=== PATIENT | male | born 1930 | race Caucasian/White ===

== ENCOUNTER 2020-08-08 20:08 | Observation (INO) ==
--- NOTE | 2020-08-08 20:56 | ERNOTE ---
Medical Problem HPI - Narrative Date of Service: 08/08/20 - General Chief Complaint: General Assessment Time Seen by Provider: 08/08/20 20:18 Source: patient, family Exam Limitations: no limitations - Immun/Allergies/Home Medications Immunizations: IMMUNIZATION HX Immunizations Up to Date Yes History of Influenza Vaccine Yes Hx Pneumococcal Vaccination No Allergies/Adverse Reactions: Allergies Penicillins Allergy (Verified 08/08/20 20:33) Home Medications: HOME MEDICATIONS Aspirin 81 mg PO DAILY 08/08/20 [Last Taken Unknown] Metoprolol Succinate [Toprol Xl] 25 mg PO DAILY 08/08/20 [Last Taken Unknown] Simvastatin [Zocor] 5 mg PO DAILY 08/08/20 [Last Taken Unknown] - History of Present History Narrative: Patient is brought in by EMS for fever, body aches and weakness going on now for 1 week. Symptoms seem to be getting worse. They have been in contact with PCP, Covid test returned back negative yesterday. No other symptoms that the patient can pinpoint. He does not have cough, no shortness of breath, no chest pain, he had one loose stool, no nausea or vomiting now, no abdominal pain. He does not have any urinary symptoms. No ill contacts with similar symptoms. He feels he is growing generally weaker due to the fever and body aches. They have not measured his temperature, seems to go down with ibuprofen, last dose of ibuprofen was 800 mg at 6 PM. Has history of gallbladder removal, had open heart surgery a few years ago. His only current medications are metoprolol, simvastatin and baby aspirin. Date (Duration): 08/01/20 Timing: intermittent Review of Systems - Review of Systems Constitutional: Present: See HPI, fever, chills, weakness, fatigue EYE: Present: no symptoms reported ENT: Present: ear pain - reports some decreased hearing and pressure in the ears for past few days, nose congestion - mild Respiratory: Present: no symptoms reported. Absent: shortness of breath, cough Cardiology: Present: no symptoms reported. Absent: chest pain, edema Gastrointestinal/Abdominal: Present: diarrhea - once Genitourinary: Present: no symptoms reported Musculoskeletal: Present: no symptoms reported Skin: Present: no symptoms reported Neurological: Present: no symptoms reported Medical History (Last Reviewed 08/08/20 @ 20:54 by Jennifer Louis MD) Past heart attack 2006 Surgical History: Surgical History (Last Reviewed 08/08/20 @ 20:54 by Jennifer Louis MD) History of cholecystectomy History of heart bypass surgery 2006 x 1 History of hernia repair Family History: Family History (Last Reviewed 08/08/20 @ 20:54 by Jennifer Louis MD) Other Family history non-contributory Social History: (Last Reviewed 08/08/20 @ 20:54 by Jennifer Louis MD) Social History: adopted: No foster care: No group home: No Marital status: lives independently: Yes household members: spouse Tobacco: Smoking Status: Never smoker Alcohol: alcohol intake: never Substance Use: substance use type: does not use Physical Exam - Physical Exam General Appearance: Present: wd/wn, alert, no apparent distress Head Exam: Present: normal inspection, no evidence of injury Eye Exam: Normal inspection: bilateral, PERRL: bilateral Ears, Nose, Throat: Present: normal except -, abnormal TM (R) - tm is bulging with purulent exudate behind. Neck: Present: normal inspection, nontender Respiratory: Present: no respiratory distress, normal breath sounds Cardiovascular/Chest: Present: regular rate, rhythm Gastrointestinal/Abdominal: Present: normal bowel sounds, nontender, nondistended - healed surgical scars Back Exam: Present: normal inspection, no CVA tenderness Extremity Exam: Present: normal inspection, no edema Neurological Exam: Present: alert, oriented, normal mood/affect Skin Exam: Present: normal color, warm/dry Progress - Results and Orders Patient's Lab Results:: I have reviewed the patient's lab results. Results and Orders: Laboratory Tests 08/08/20 08/08/20 08/08/20 20:30 20:30 20:59 WBC 13.0 H Hgb 14.0 Hct 40.8 L Plt Count 205 Neutrophils # 11.9 H Sodium 130 L Chloride 97 Carbon Dioxide 21.1 L Anion Gap 15.5 H BUN 37 H Creatinine 1.42 H BUN/Creatinine Ratio 26.1 H AST 78 H ALT 47 C-Reactive Prot, Quant 39.5 H Influenza Type A Ag Negative Influenza Type B Ag Negative Laboratory Tests 08/08/20 21:54 SARS-CoV-2 (PCR) Not detected - Vital Signs Patient's Vital Signs:: I have reviewed the patient's vital signs. Vital Signs: Vital Signs 10/30/20 20:13 Temperature 37.1 C Pulse Rate 69 Respiratory Rate 16 Blood Pressure 112/62 O2 Sat by Pulse Oximetry 95 - EKG EKG #1 EKG: NSR EKG read: Interp. by me EKG Comments: EKG shows normal sinus rhythm, no acute changes, ventricular rate is 67. - X-Ray X-Ray #1 X-Ray: chest Interpretation: Interp. by me - DM pneumonia, patchy infiltrate - Progress/Reassessment Chief Complaint: Fever Progress:: Unchanged Progress Note-Subjective: 08/08/20 22:10 Discussed findings of chest x-ray, elevated CRP and white blood cell count with patient and family. Discussed options. I also contacted hospitalist and recommended that the patient be admitted for observation due to his age and the fact that he had been evaluated already earlier in the week and his symptoms are deteriorating. He is suffering from weakness and his family is concerned that he may fall. Recommended that he have first doses of IV antibiotics and IV fluids until he is stronger and his symptoms are improving from his pneumonia. Blood cultures are obtained, first dose of antibiotics administered. He received 1 L of IV fluids here in the ED. Covid test is pending. 08/08/20 23:15 Patient's Covid test is negative, he is admitted to the floor in stable condition. Departure Clinical Impression: CAP (community acquired pneumonia) - Departure Disposition: Still a patient Condition: Fair
[2020-08-08 21:03] LABS: Albumin * 2.6 gm/dl (3.4-5.0); Anion Gap 15.5 mmol/L (6.8-13.8); BUN/Creatinine Ratio 26.1 (9.0-21.6); Bilirubin, Total 0.9 mg/dL (0.0-1.1); Ca. Corrected For Albumin 9.5 mg/dL (8.4-10.2); Calcium * 8.7 mg/dL (7.9-10.9); Carbon Dioxide 21.1 mmol/L (24-32.6); Potassium 3.6 mmol/L (3.4-4.6); Total Protein 6.5 gm/dL (6.2-8.2)
[2020-08-08 21:04] LABS: Hematocrit 40.8 % (42.0-52.0); Mean Cell Volume 93.2 fl (78-100); Mean Corpuscular Hgb Conc 34.3 g/dl (32-36); Mean Platelet Volume 9.9 fl (8-11.3); Neutrophil # 11.9 K/mm3 (1.3-6.0); Neutrophil % 91.8 % (42-75.0); Platelet Count 205 K/mm3 (150-450); Red Blood Count 4.38 M/mm3 (4.7-6.0); Red Cell Distribution Width 12.9 % (11.5-14.0)
[2020-08-08] MEDS ORDERED: NORMAL SALINE 1,000 ML IV ONE (21:04)
[2020-08-08 21:18] LABS: CRP 39.5 mg/dL (0.0-0.9)
[2020-08-08] MEDS ORDERED: cefTRIAXone SODIUM 1,000 MG/100 ML BAG IV ONE (21:57)
[2020-08-08] MEDS ORDERED: AZITHROMYCIN 250 MG TABLET PO ONE (21:58)
[2020-08-09 02:53] LABS: Urine Appearance Clear (CLEAR); Urine Bacteria None Seen; Urine Bilirubin Negative (NEGATIVE); Urine Blood 5 /ul (NEGATIVE); Urine Color Dark Yellow; Urine Fine Granular Cast 0-5 /LPF; Urine Ketone Negative (NEGATIVE); Urine Nitrite Negative (NEGATIVE); Urine Protein 30 mg/dL (NEGATIVE); Urine RBC None Seen /hpf (0-5); Urine Specific Gravity 1.025 SP.GR. (1.005-1.030); Urine Urobilinogen Normal (NORMAL); Urine WBC None Seen /hpf (0-5); Urine pH 5.5 pH (5.0-7.0)
[2020-08-09] MEDS ORDERED: METOPROLOL SUCCINATE 25 MG TABLET.SA PO SCH (09:54)
[2020-08-09] MEDS ORDERED: ASPIRIN 81 MG TAB.CHEW PO SCH (09:54)
[2020-08-09] MEDS ORDERED: AZITHROMYCIN 250 MG TABLET PO ONE (10:11)
--- NOTE | 2020-08-09 10:22 | HPDIS ---
Chief Complaint - Chief Complaint Date of Service: 08/09/20 Time of Service: 10:09 Chief Complaint: Fever/chills, body aches History of Present Illness: Pleasant 89-year-old male here due to 1 week of generalized body aches and likely fever/chills. Patient seen in the ER and was found to have a left upper lobe pneumonia, he was given Rocephin and azithromycin. Patient had a negative Covid test with his PCP earlier this week. Patient had mildly elevated white count but otherwise his lab work was unremarkable. Since being here his vital signs been stable has been afebrile. Patient states he feels fine and is ready go home. Patient currently denies cough, shortness of breath. He denies abdominal pain, nausea or vomiting. He has a good appetite. Patient has a history of hyperlipidemia and hypertension. Medical History (Last Reviewed 08/09/20 @ 00:02 by Renate Linn RN) Past heart attack 2005 Surgical History: Surgical History (Last Reviewed 08/09/20 @ 00:02 by Renate Linn RN) History of cholecystectomy History of heart bypass surgery 2006 x 1 History of hernia repair Family History: Family History (Last Updated 08/09/20 @ 00:04 by Renate Linn RN) Mother Father Sister No problems noted. Other Family history non-contributory Social History: (Last Reviewed 08/09/20 @ 00:04 by Renate Linn RN) Social History: adopted: No foster care: No snf: No Marital status: lives independently: Yes household members: spouse Tobacco: Smoking Status: Never smoker Alcohol: alcohol intake: never Substance Use: substance use type: does not use Review Of Systems (GEN) - Review of Systems Generalized/Overall Review: Present: Weakness, Chills, Fever EENTM: Present: No Symptoms Reported Respiratory: Present: No Symptoms Reported Cardiac: Present: No Symptoms Reported Abdominal: Present: No Symptoms Reported Musculoskeletal: Present: No Symptoms Reported Immunizations: IMMUNIZATION HX Immunizations Up to Date Yes History of Influenza Vaccine Yes Hx Pneumococcal Vaccination No Allergies/Adverse Reactions: Allergies Allergy/AdvReac Type Severity Reaction Status Date / Time Penicillins Allergy Verified 08/08/20 20:33 Home Medications: HOME MEDICATIONS Aspirin 81 mg PO DAILY 08/08/20 [Last Taken Unknown] Metoprolol Succinate [Toprol Xl] 25 mg PO DAILY 08/08/20 [Last Taken Unknown] Simvastatin [Zocor] 5 mg PO DAILY 08/08/20 [Last Taken Unknown] Azithromycin 250 mg PO DAILY #3 tab 08/09/20 [Last Taken Unknown] Exam - Exam Vital Signs: Vital Signs - Last Taken Temp 36.5 C 08/09/20 06:32 Pulse 73 08/09/20 06:32 Resp 15 08/09/20 06:32 BP 111/43 08/09/20 06:32 Pulse Ox 94 08/09/20 06:32 Constitutional: Present: Alert, Oriented x3, Well developed, Elderly ENT Exam: Present: hearing grossly normal. Absent: nasal congestion, nasal drainage Eye Exam: bilateral eye: normal inspection, EOMI Neck: Present: non-tender, supple Back Exam: Present: normal inspection, no CVA tenderness Respiratory: Present: lungs clear, normal breath sounds Cardiovascular/Chest: Present: regular rate, rhythm, no murmur Peripheral Pulses: dorsalis-pedis (R): 2+, dorsalis-pedis (L): 2+ Abdomen: Present: Normal bowel sounds, soft, nontender, nondistended Extremity: Present: non-tender. Absent: lower extremity edema Skin Exam: Present: normal color, warm/dry Appearance: Present: appropriate appearance, appropriate insight Eye contact: Present: cooperative, good eye contact Thoughts: Present: normal thought pattern, normal mood /affect Diagnostic Studies: Abnormal Lab Results 08/08/20 08/08/20 08/09/20 Range/Units 20:30 20:30 02:39 WBC 13.0 H (4.0-10.5) K/mm3 RBC 4.38 L (4.7-6.0) M/mm3 Hct 40.8 L (42.0-52.0) % MCH 32.0 H (27-31) pg Immature Gran % (Auto) 0.80 H (0.001-0.429) % Immature Gran # (Auto) 0.10 H (0.000-0.0310) K/mm3 Neutrophils % 91.8 H (42-75.0) % Lymphocytes % 3.2 L (20-51) % Neutrophils # 11.9 H (1.3-6.0) K/mm3 Lymphocytes # 0.41 L (1.5-3.5) k/mm3 Sodium 130 L (132-142) mmol/L Carbon Dioxide 21.1 L (24-32.6) mmol/L Anion Gap 15.5 H (6.8-13.8) mmol/L BUN 37 H (6-23) mg/dL Creatinine 1.42 H (0.4-1.4) mg/dL Est GFR (Non-Af Amer) 50 L (60-130) mL/min BUN/Creatinine Ratio 26.1 H (9.0-21.6) AST 78 H (0-48) U/L C-Reactive Prot, Quant 39.5 H (0.0-0.9) mg/dL Albumin 2.6 L (3.4-5.0) gm/dl Urine Protein 30 H (NEGATIVE) mg/dL Urine Blood 5 H (NEGATIVE) /ul Fine Granular Casts 0-5 H (NONE) /LPF Laboratory Results WBC 13.0 K/mm3 (4.0-10.5) H 08/08/20 20:30 RBC 4.38 M/mm3 (4.7-6.0) L 08/08/20 20:30 Hgb 14.0 gm/dL (13.5-18.0) 08/08/20 20: Hct 40.8 % (42.0-52.0) L 08/08/20 20:30 MCV 93.2 fl (78-100) 08/08/20 20:30 MCH 32.0 pg (27-31) H 08/08/20 20: MCHC 34.3 g/dl (32-36) 08/08/20 20: RDW 12.9 % (11.5-14.0) 08/08/20 20: Plt Count 205 K/mm3 (150-450) 08/08/20 20: MPV 9.9 fl (8-11.3) 08/08/20 20:30 Immature Gran % (Auto) 0.80 % (0.001-0.429) H 08/08/20 20:30 Immature Gran # (Auto) 0.10 K/mm3 (0.000-0.0310) H 08/08/20 20:30 Neutrophils % 91.8 % (42-75.0) H 08/08/20 20:30 Lymphocytes % 3.2 % (20-51) L 08/08/20 20:30 Monocytes % 3.8 % (0.0-9) 08/08/20 20: Eosinophils % 0.2 % (0.0-3.0) 08/08/20 20: Basophils % 0.2 % (0.0-1.0) 08/08/20 20:30 Nucleated RBC % 0.0 k/mm3 (0-1) 08/08/20 20: Neutrophils # 11.9 K/mm3 (1.3-6.0) H 08/08/20 20: Lymphocytes # 0.41 k/mm3 (1.5-3.5) L 08/08/20 20: Monocytes # 0.5 k/mm3 (0.0-1.0) 08/08/20: Eosinophils # 0.0 k/mm3 (0.0-0.7) 08/08/20: Absolute Basophils 0.0 k/mm3 (0.0-0.1) 08/08/20 20:30 Sodium 130 mmol/L (132-142) L 08/08/20 20: Plasma Sodium 130 mmol/L (130-142) 08/08/20 20:30 Potassium 3.6 mmol/L (3.4-4.6) 08/08/20: Chloride 97 mmol/L (97-106) 08/08/20: Carbon Dioxide 21.1 mmol/L (24-32.6) L 08/08/20 20: Anion Gap 15.5 mmol/L (6.8-13.8) H 08/08/20 20: BUN 37 mg/dL (6-23) H 08/08/20 20:30 Creatinine 1.42 mg/dL (0.4-1.4) H 08/08/20 20:30 Est GFR (Non-Af Amer) 50 mL/min (60-130) L 08/08/20: BUN/Creatinine Ratio 26.1 (9.0-21.6) H 08/08/20 20: Random Glucose 99 mg/dL (70-110) 08/08/20 20: Calcium 8.7 mg/dL (7.9-10.9) 08/08/20:30 Calcium Adj for Albumin 9.5 mg/dL (8.4-10.2) 08/08/20 20:30 Total Bilirubin 0.9 mg/dL (0.0-1.1) 08/08/20 20:30 AST 78 U/L (0-48) H 08/08/20 20:30 ALT 47 U/L (19-67) 08/08/20 20:30 Alkaline Phosphatase 124 U/L (50-170) 08/08/20 20:30 C-Reactive Prot, Quant 39.5 mg/dL (0.0-0.9) H 08/08/20 20:30 Total Protein 6.5 gm/dL (6.2-8.2) 08/08/20 20:30 Albumin 2.6 gm/dl (3.4-5.0) L 08/08/20 20:30 Urine Color Dark yellow 08/09/20 02:39 Urine Appearance Clear (CLEAR) 08/09/20 02:39 Urine pH 5.5 pH (5.0-7.0) 08/09/20 02:39 Ur Specific [place] 1.025 SP.GR. (1.005-1.030) 08/09/20 02:39 Urine Protein 30 mg/dL (NEGATIVE) H 08/09/20 02:39 Urine Glucose (UA) Negative mg/dL (NEGATIVE) 08/09/20 02:39 Urine Ketones Negative mg/dL (NEGATIVE) 08/09/20 02:39 Urine Blood 5 /ul (NEGATIVE) H 08/09/20 02:39 Urine Nitrate Negative (NEGATIVE) 08/09/20 02:39 Urine Bilirubin Negative mg/dl (NEGATIVE) 08/09/20 02:39 Prot Sulfosalicylic Acd Negative mg/dL (0) 08/09/20 02:39 Urine Urobilinogen Normal EU/dl (NORMAL) 08/09/20 02:39 Ur Leukocyte Esterase Negative /ul (NEGATIVE) 08/09/20 02:39 Urine RBC None seen /hpf (0-5) 08/09/20 02:39 Urine WBC None seen /hpf (0-5) 08/09/20 02:39 Ur Epithelial Cells None seen /hpf (0-5) 08/09/20 02:39 Urine Bacteria None seen (NONE) 08/09/20 02:39 Fine Granular Casts 0-5 /LPF (NONE) H 08/09/20 02:39 Urine Culture Comments No culture indicated 08/09/20 02:39 Influenza Type A Ag Negative (NEGATIVE) 08/08/20 20:59 Influenza Type B Ag Negative (NEGATIVE) 08/08/20 20:59 SARS-CoV-2 (PCR) Not detected (NotDetected) 08/08/20 21:54 Assessment/Plan - Assessment/Plan (1) CAP (community acquired pneumonia) Problem: Acute (2) Hypertension Assessment: Patient admitted for community-acquired pneumonia and started on Rocephin and azithromycin in the hospital. He will be discharged home after receiving a dose of a azithromycin later today. He will be given 3 more days of azithromycin to complete his antibiotic course. Continue his blood pressure and cholesterol medication. No changes to be made with his home medicines. Patient is to follow with his PCP in the next 1 to 2 weeks. Patient's vital signs are stable and he has no concerns or complaints at this time. Patient states he is ready go home. Problem: Acute (3) Hyperlipidemia Problem: Acute (1) CAP (community acquired pneumonia) Problem: Acute (2) Hypertension Problem: Acute (3) Hyperlipidemia Problem: Acute Date of Discharge:: 08/09/20 Hospital Course: Patient admitted for community-acquired pneumonia and started on Rocephin and azithromycin in the hospital. He was found to have a mildly elevated white count at 13.0 with a left shift other pertinent lab work include GFR of 50 with a creatinine of 1.42. He was slightly hyponatremic with a sodium of 130 but otherwise his lab work was stable and fairly unremarkable. He will be discharged home after receiving a dose of a azithromycin later today. He will be given 3 more days of azithromycin to complete his antibiotic course. Continue his blood pressure and cholesterol medication. No changes to be made with his home medicines. Patient is to follow with his PCP in the next 1 week, he will need repeat BMP to monitor sodium levels and kidney function. Patient's vital signs are stable and he has no concerns or complaints at this time. Patient states he is ready go home. Procedures Performed: none Results and Findings: Lab Pending Results 08/08/20 20:30: WBC 13.0 H, RBC 4.38 L, Hgb 14.0, Hct 40.8 L, MCV 93.2, MCH 32.0 H, MCHC 34.3, RDW 12.9, Plt Count 205, MPV 9.9, Immature Gran % (Auto) 0.80 H, Immature Gran # (Auto) 0.10 H, Neutrophils % 91.8 H, Lymphocytes % 3.2 L, Monocytes % 3.8, Eosinophils % 0.2, Basophils % 0.2, Nucleated RBC % 0.0, Neutrophils # 11.9 H, Lymphocytes # 0.41 L, Monocytes # 0.5, Eosinophils # 0.0, Absolute Basophils 0.0 08/08/20 20:30: Sodium 130 L, Plasma Sodium 130, Potassium 3.6, Chloride 97, Carbon Dioxide 21.1 L, Anion Gap 15.5 H, BUN 37 H, Creatinine 1.42 H, Est GFR (Non-Af Amer) 50 L, BUN/Creatinine Ratio 26.1 H, Random Glucose 99, Calcium 8.7, Calcium Adj for Albumin 9.5, Total Bilirubin 0.9, AST 78 H, ALT 47, Alkaline Phosphatase 124, C-Reactive Prot, Quant 39.5 H, Total Protein 6.5, Albumin 2.6 L 08/08/20 20:59: Influenza Type A Ag Negative, Influenza Type B Ag Negative 08/08/20 21:54: SARS-CoV-2 (PCR) Not detected 08/09/20 02:39: Urine Color Dark yellow, Urine Appearance Clear, Urine pH 5.5, Ur Specific [place] 1.025, Urine Protein 30 H, Urine Glucose (UA) Negative, Urine Ketones Negative, Urine Blood 5 H, Urine Nitrate Negative, Urine Bilirubin Negative, Prot Sulfosalicylic Acd Negative, Urine Urobilinogen Normal, Ur Leukocyte Esterase Negative, Urine RBC None seen, Urine WBC None seen, Ur Epithelial Cells None seen, Urine Bacteria None seen, Fine Granular Casts 0-5 H, Urine Culture Comments No culture indicated Discharge Location: Home Disposition: Home self-care Condition: Fair Discharge Activity: Activity as tolerated Discharge Diet: General/regular food Referrals: Tom Tesfaye DO [Primary Care Provider] - Prescriptions (Any new or edited meds): Azithromycin 250 mg PO DAILY #3 tab Transmission Status: Pending to [facility] #[id number] Complete Home Medications List: Complete Home Medication List: Aspirin 81 mg PO DAILY 08/08/20 Metoprolol Succinate [Toprol Xl] 25 mg PO DAILY 08/08/20 Simvastatin [Zocor] 5 mg PO DAILY 08/08/20 Azithromycin 250 mg PO DAILY #3 tab 08/09/20
[2020-08-09 12:23] LABS: Anion Gap 14.6 mmol/L (6.8-13.8); BUN/Creatinine Ratio 31.4 (9.0-21.6); Calcium * 8.4 mg/dL (7.9-10.9); Carbon Dioxide 21.3 mmol/L (24-32.6); Estimated Creat Clear 42.4; Potassium 3.9 mmol/L (3.4-4.6)
[2020-08-09 12:49] LABS: Anion Gap 14.6 mmol/L (6.8-13.8); BUN/Creatinine Ratio 31.4 (9.0-21.6); Calcium * 8.4 mg/dL (7.9-10.9); Carbon Dioxide 21.3 mmol/L (24-32.6); Estimated Creat Clear 42.4; Potassium 3.9 mmol/L (3.4-4.6)
[2020-08-09 14:26] VITALS: BP 130/66
[2020-08-09] MEDS ORDERED: SIMVASTATIN 5 MG TABLET PO SCH (21:00)
== END 2020-08-09 14:28 | disposition home or self-care (01) ==
LOC: MS 20:08 → ER 20:08 → MS 23:27
PROVIDERS: ADMIT Family Medicine; ATTEND Family Medicine